=== PATIENT | female | born 1965 | race Caucasian/White ===

== ENCOUNTER 2020-08-25 04:24 | Emergency (ER) | payer OTHER ==
[2020-08-25 04:41] VITALS: BP 107/57; PULSE 88
--- NOTE | 2020-08-25 04:41 | ERPHSYRPT ---
- History of Present Illness Time Seen by Provider: 08/25/20 04:24 Source: patient Exam Limitations: no limitations Physician History: Pt is here for medical clearance for residential. Police state pt's [place] was [phone]. Pt denies chest pain, shortness of air, fever, abdominal pain. - Review of Systems Constitutional: No Fever Respiratory: No Dyspnea Cardiac: No Chest Pain Abdominal/Gastrointestinal: No Abdominal Pain, No Vomiting All Other Systems: Reviewed and Negative - Physical Exam General Appearance: alert Eye Exam: PERRL/EOMI Ears, Nose, Throat Exam: TMs normal, pharynx normal, moist mucous membranes Neck Exam: normal inspection Respiratory Exam: lungs clear Cardiovascular Exam: normal heart sounds Gastrointestinal/Abdomen Exam: soft, normal bowel sounds Back Exam: normal range of motion Extremity Exam: normal range of motion Neurologic Exam: alert, oriented x 3, cooperative Skin Exam: warm, dry SpO2 Interpretation: normal SpO2: 100 O2 Delivery: Room Air - Course Nursing assessment & vital signs reviewed: Yes - Progress Progress: unchanged - Departure Departure Disposition: [facility]/Shelter Clinical Impression: Alcoholic intoxication Condition: Stable Critical Care Time: No Instructions: Alcohol Abuse and Alcoholism (DC) Additional Instructions: Avoid alcohol.
[2020-08-25 04:49] VITALS: O2SAT 100
== END 2020-08-25 05:00 | disposition home or self-care (01) ==
LOC: ED 04:24
DX: F10.929 Alcohol use, unspecified with intoxication, unspecified (principal)
CPT/HCPCS: 36415; 80307; 99283; G0480

== ENCOUNTER 2022-10-22 19:49 | Emergency (ER) | payer BC, OTHER ==
[2022-10-22 20:10] VITALS: BP 132/60; O2SAT 100
[2022-10-22 21:08] VITALS: PULSE 70
--- NOTE | 2022-10-22 21:08 | ERPHSYRPT ---
- History of Present Illness Time Seen by Provider: 10/22/22 19:59 Source: patient Exam Limitations: no limitations Patient Subjective Stated Complaint: pt states she was putting something together when she heard a pop from her lt hand. states she has been having pain and swelling since Triage Nursing Assessment: pt alert and oriented, answers questions approp. pt ambulatory with steady gait noted. respirations nonlabored. skin warm and dry. swelling noted to top of lt ahnd. pt reports tenderness with palpation. cap refill wnl, radial pulse wnl. 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 Moderate intensity sharp with movements, no numbness or tingling of the fingers, no difficulty movements of the wrist and fingers. Does have swelling on the dorsum of hand. No direct trauma otherwise. Occurred: days ago (2) Method of Injury: other Quality: sharpness Severity of Pain-Max: moderate Severity of Pain-Current: mild Extremities Pain Location: hand: left Modifying Factors: Improves With: immobilization. Worsens With: movement Associated Symptoms: none Allergies/Adverse Reactions: No Known Drug Allergies Allergy (Unverified 08/25/20 04:57) Home Medications: Duloxetine HCl [Cymbalta] 60 mg PO DAILY 08/25/20 [History] Hx Tetanus, Diphtheria Vaccination/Date Given: No Hx Influenza Vaccination/Date Given: No Hx Pneumococcal Vaccination/Date Given: No Immunizations Up to Date: No Travel Risk - International Travel Have you traveled outside of the country in past 3 weeks: No - Coronavirus Screening Are you exhibiting any of the following symptoms?: No Close contact with a COVID-19 positive Pt in past 14-21 Days: No - Vaccine Status Have you recieved a Covid-19 vaccination: Yes Analysis Manager: Moderna - Vaccination Dates Date of 2cond Vaccination (if applicable): 02/13/21 - Review of Systems Constitutional: No Symptoms Eyes: No Symptoms Respiratory: No Symptoms Cardiac: No Symptoms Abdominal/Gastrointestinal: No Symptoms Musculoskeletal: Joint Swelling Skin: No Symptoms Neurological: No Symptoms Endocrine: No Symptoms Hematologic/Lymphatic: No Symptoms - Past Medical History Pertinent Past Medical History: Yes Neurological History: No Pertinent History ENT History: No Pertinent History Cardiac History: No Pertinent History Respiratory History: Asthma Endocrine Medical History: No Pertinent History Musculoskeletal History: Osteoarthritis GI Medical History: No Pertinent History History: No Pertinent History Psycho-Social History: Bipolar, Depression Female Reproductive Disorders: No Pertinent History - Past Surgical History Past Surgical History: Yes Neuro Surgical History: No Pertinent History Cardiac: No Pertinent History Respiratory: No Pertinent History Gastrointestinal: No Pertinent History Genitourinary: No Pertinent History Musculoskeletal: No Pertinent History Female Surgical History: Tubal Ligation - Social History Smoking Status: Former smoker Exposure to second hand smoke: Yes Drug Use: none Patient Lives Alone: No - Nursing Vital Signs Nursing Vital Signs: Initial Vital Signs Temperature 97.5 F 10/22/22 19:59 Pulse Rate 80 10/22/22 19:59 Respiratory Rate 16 10/22/22 19:59 Blood Pressure 132/60 10/22/22 19:59 O2 Sat by Pulse Oximetry 100 10/22/22 19:59 Pain Scale Pain Intensity 7 - Physical Exam General Appearance: no apparent distress, alert Eyes, Ears, Nose, Throat Exam: normal ENT inspection Neck Exam: normal inspection, supple, full range of motion Cardiovascular/Respiratory Exam: normal breath sounds, regular rate/rhythm Wrist Exam: normal inspection, non-tender, no evidence of injury, normal ROM Hand Exam: soft tissue tenderness (Dorsum of left hand 2 x 2 cm swelling with minimal tenderness around. Could be a ganglion/soft tissue/tendon injury.), No bone tenderness Neuro/Tendon Exam: normal sensation, normal motor functions, normal tendon functions Mental Status Exam: alert, oriented x 3, cooperative Skin Exam: normal color SpO2 Interpretation: normal SpO2: 100 O2 Delivery: Room Air Ordered Tests: Active Orders 24 hr Category Date Time Status HAND (MINIMUM 3 VIEWS) Stat Exams 10/22/22 20:43 Taken - Progress Progress: unchanged Progress Note: 10/22/22 21:05 57 years old is evaluated for pain and swelling dorsum of left hand with a popping sound while she was lifting a light weight object at work 2 days ago. Pain is more with movements and palpation and better with resting and associated swelling on the dorsum of hand. Patient work involves repetitive movements. I have obtained x-rays which seems negative on review by me for any acute fracture dislocation. Official report is pending. She is offered pain medication which she refused. She does have swelling on the dorsum of hand with no obvious bony tenderness, more of a soft tissue/ligament injury/ganglion. Placed in a premade aluminum splint on the volar aspect. Recommended taking Tylenol ibuprofen and outpatient orthopedics follow-up. Discussed signs symptoms of worsening needing return to ER which she seems understanding. She has intact distal neurovascular Counseled pt/family regarding: diagnosis, need for follow-up, rad results - Departure Departure Disposition: Home Clinical Impression: Hand pain, left Condition: Stable Critical Care Time: No Referrals: ARCHIE SOW MD [Primary Care Provider] - Follow Up with PCP/3 days ORTHO - TAMI TORREZ NP [NON-STAFF PHY W/O PRIVILEGES] - Follow up/PCP as directed (Tomorrow for reevaluation) Instructions: Hand Pain (DC) Additional Instructions: Avoid exertional work. Follow-up with Ortho for reevaluation. Keep it elevated, intermittent ice, Tylenol/ibuprofen as needed. Return to ER for any worsening. Prescriptions: Ibuprofen 600 mg PO Q6HPRN PRN 10 Days #20 tablet PRN Reason: Pain
--- NOTE | 2022-10-23 08:40 | XRAY ---
Indication: Pain following injury 3 days ago. Comparison: None 3 view left hand obtained. No bony, articular, or soft tissue abnormalities.
== END 2022-10-22 21:18 | disposition home or self-care (01) ==
LOC: ED 19:49
DX: M79.642 Pain in left hand (principal); Z79.899 Other long term (current) drug therapy
CPT/HCPCS: 73130; 99283; A4570